=== PATIENT | male | born 1980 | race Caucasian/White ===

== ENCOUNTER 2019-12-14 13:54 | Emergency (ER) | payer OTHER | END 2019-12-14 15:17 | disposition home or self-care (01) | LOC: ED 13:54 | DX: T15.01XA Foreign body in cornea, right eye, initial encounter (principal); R51 Headache; Z88.0 Allergy status to penicillin; X58.XXXA Exposure to other specified factors, initial encounter; Y93.89 Activity, other specified; Y92.89 Other specified places as the place of occurrence of the external cause; Y99.8 Other external cause status ==